=== PATIENT | male | born 1950 | race Caucasian/White ===

== ENCOUNTER 2018-05-28 13:20 | Outpatient (CLI) | payer MEDICARE ==
[~2018-05-28] VITALS: Ht 188 cm; Wt 136.1 kg
[~2018-05-28 13:20] MED LIST: ASPIRIN BUFFER325 M1 ORAL; ATENOLOL50 MG ORAL; DIOVAN HCT 1601 EACH ORAL; FELODIPINE ER10 MG PO; OXYCONTIN20 MG ORAL; PERIDEX15 ML MM; Plendil PO; VICODIN 5-3001 EACH ORAL; XARELTO10 MG ORAL; plendil
[2018-05-28] MEDS ORDERED: FUROSEMIDE80 M1 ORAL (16:25)
[2018-05-28 16:27] VITALS: BP 124/85
--- NOTE | 2018-05-28 20:45 | Consultation ---
DATE OF CONSULTATION: 05/28/2018 CHIEF COMPLAINT: Screening colonoscopy and history of colonic polyps. PAST MEDICAL HISTORY: 1. Atrial fibrillation. 2. Hypertension. 3. Arthritis. PAST SURGICAL HISTORY: Total hip replacement in 2013. MEDICATIONS: Atenolol, Diovan, Xarelto, Lasix, . FAMILY HISTORY: Father with colon cancer at age 82. SOCIAL HISTORY: The patient socially drinks, quit tobacco in 1989. Denies any IV drug abuse. ALLERGIES: No known allergies. REVIEW OF SYSTEMS: A 10-point review of systems was performed and pertinent positives in the history of present illness. PHYSICAL EXAMINATION: VITAL SIGNS: Temperature 97.2, blood pressure 124/85, pulse 80, respirations 20. HEENT: Normocephalic and atraumatic. No scleral icterus. NECK: Supple. No evidence of obvious lymphadenopathy. CARDIOVASCULAR: Regular rhythm. Plus S1 and S2. No obvious murmur. LUNGS: Clear to auscultation bilaterally. ABDOMEN: Positive bowel sounds. Soft, nontender. No rebound. No guarding. No peritoneal sign. EXTREMITIES: No cyanosis. No clubbing. No edema. ASSESSMENT: The patient is a 67-year-old male with past medical history of colonic polyps, family history of colon cancer, last colonoscopy over three years ago and the patient had three polyps. The patient will need a repeat colonoscopy. The patient was told that he needs to hold off on Xarelto for 48 hours before the procedure. He understood the risks and benefits of the procedure and stopping Xarelto was explained to the patient, he understood. The patient was given the prep instruction. The patient to call back for appointment for the colonoscopy. I want to thank, Dr. Beny Rangel, for this kind referral. Raymon Hogue M.D. DR: Cameron JOB#: [id number] CC: Beny Rangel M.D.; Fax#: [phone]
== END 2018-05-28 16:00 | disposition home or self-care (01) ==
LOC: PAN 13:20
DX: Z01.818 Encounter for other preprocedural examination (principal); I10 Essential (primary) hypertension; M19.90 Unspecified osteoarthritis, unspecified site; Z86.010 Personal history of colon polyps; Z79.01 Long term (current) use of anticoagulants; Z80.0 Family history of malignant neoplasm of digestive organs
CPT/HCPCS: 99202

== ENCOUNTER 2019-03-18 13:37 | Outpatient (CLI) | payer MEDICARE, BC ==
[~2019-03-18] VITALS: Ht 188 cm; Wt 142.0 kg
[~2019-03-18 13:37] MED LIST changes: +FUROSEMIDE80 M1 ORAL
--- NOTE | 2019-03-18 14:00 | General Progress Note ---
Assessment/Plan Assessment/Plan: 1. Atrial fibrillation. 2. Hypertension. 3. Arthritis 4. screening colon eval plan colonoscopy Subjective ROS Limited/Unobtainable: Yes Allergies: Coded Allergies: No Known Allergies (Unverified , 09/17/13) Objective General Appearance: alert EENT: normal ENT inspection Neck: supple Cardiovascular: normal rate Respiratory/Chest: lungs clear Abdomen: normal bowel sounds, non tender, soft Extremities: non-tender Raymon Hogue MD Mar 18, 2019 14:00
[2019-03-18 14:43] VITALS: BP 131/69
== END 2019-03-18 15:54 | disposition home or self-care (01) ==
LOC: PAN 13:37
DX: I10 Essential (primary) hypertension (principal); M19.90 Unspecified osteoarthritis, unspecified site; I48.91 Unspecified atrial fibrillation

== ENCOUNTER 2019-04-06 07:05 | Day surgery (SDC) | payer MEDICARE, BC ==
[2019-04-06] VITALS (8 sets, daily range): BP systolic 131–177; BP diastolic 90–100
[~2019-04-06] VITALS: Ht 188 cm; Wt 138.3 kg
[~2019-04-06 07:05] MED LIST changes: +LR 1000ml 1,000 ML IVLG ONE
[2019-04-06] MEDS ORDERED: ATORVASTATIN CA20 MG ORAL (07:53)
[2019-04-06] MEDS: LR 1000ml 1,000 ML IVLG SCH ×2 (08:05→09:42)
--- NOTE | 2019-04-06 08:13 | Anethesia Preoperative Eval ---
Anesthesia Pre-op PMH/ROS General Date of Evaluation: Apr 06, 2019 Time of Evaluation: 08:07 Anesthesiologist: rc ASA Score: ASA 4 Mallampati Score Class I : Soft palate, uvula, fauces, pillars visible Class II: Soft palate, uvula, fauces visible Class III: Soft palate, base of uvula visible Class IV: Only hard plate visible Mallampati Classification: Class II Surgeon: irma Diagnosis: hx/o colon polyps Surgical Procedure: colonoscopy Anesthesia History: none Social History: smoking - former smoker, alcohol use Family History: no anesthesia problems Allergies: Coded Allergies: No Known Allergies (Unverified , 09/17/13) Medications: see eMAR Patient NPO?: Yes Past Medical History Cardiovascular: Reports: HTN, arrhythmia - atrial fibrillation, other - hypercholesterolemia Gastrointestinal/Genitourinary: Reports: other - colon polyps, kidney calculi, HEENT: Reports: cataract (L), LUMBEE (L) Musculoskeletal/Integumentary: Reports: DJD - left peña PSxH Narrative: dental implant, cataract sx, colonoscopy, echocardiogram, endoscopy Anesthesia Pre-op Phys. Exam Physician Exam Last Vital Signs Date Time Temp Pulse Resp B/P (MAP) Pulse Ox O2 Delivery O2 Flow Rate FiO2 04/06/19 07:48 Room Air Constitutional: NAD Neurologic: CN 2-12 intact Cardiovascular: RRR Respiratory: CTA Gastrointestinal: S/NT/ND Airway Exam Mallampati Score: Class II MO: limited Neck: flexible TMD: 2fb ROM: limited Anesthesia Pre-op A/P Studies Pre-op Studies: EKG - atrial fibrillation with slow ventricular response, septal infarct Risk Assessment & Plan Assessment: asa4 Plan: mac Status Change Before Surgery: No Pre-Antibiotics Drug: Amairani Johnson MD Apr 06, 2019 08:13
[2019-04-06] MEDS ORDERED: fentaNYL 100 mcg/2 mL IV PRN (08:15)
[2019-04-06] MEDS ORDERED: DiphenhydrAMINE 50mg/ml Inj IVP PRN (08:15)
[2019-04-06] MEDS ORDERED: Atropine Inj 1mg/10ml Syr IV PRN (08:15)
[2019-04-06] MEDS ORDERED: Midazolam 2mg/2ml Inj IVP PRN (08:15)
--- NOTE | 2019-04-06 08:44 | Pre-Procedure Note/Attestation ---
Pre-Procedure Note/Attestation Complete Prior to Procedure Planned Procedure: not applicable Procedure Narrative: colonoscopy Indications for Procedure Pre-Operative Diagnosis: screening Attestation I attest that I discussed the nature of the procedure; its benefits; risks and complications; and alternatives (and the risks and benefits of such alternatives ), prior to the procedure, with the patient (or the patient's legal medical service representative). I attest that, if there was a reasonable possibility of needing a blood transfusion, the patient (or the patient's legal medical service representative) was given the [facility] standardized written summary, pursuant to the [employer] [place] Blood Safety Act ([place] Health and Safety Code # 1645, as amended). I attest that I re-evaluated the patient just prior to the surgery and that there has been no change in the patient's H&P, except as documented below: Raymon Hogue MD Apr 06, 2019 08:44
--- NOTE | 2019-04-06 08:45 | Short Stay Surgery H&P ---
History of Present Illness History of Present Illness Chief Complaint see recent office note HPI Martinez Tavera is a 68 year old male who was admitted on for Hx Of Polyps Patient History Allergies: Coded Allergies: No Known Allergies (Unverified , 09/17/13) Medication History Scheduled Atenolol* (Tenormin*), 50 MG ORAL BID, (Reported) Atorvastatin Calcium* (Atorvastatin Calcium*), 20 MG ORAL BEDTIME, (Reported) Furosemide* (Lasix*), 80 MG ORAL DAILY, (Reported) Rivaroxaban (Xarelto*), 10 MG ORAL DAILY, (Reported) Valsartan/Hydrochlorothiazide 160-12.5MG (Diovan Hct 160-12.5 Mg Tab), 2 TAB ORAL DAILY, (Reported) Discontinued Medications Felodipine (Felodipine Er), 10 MG PO HS, (Reported) Discontinued Reason: Pt stopped taking med Physical Exam Vital Signs Last Vital Signs Date Time Temp Pulse Resp B/P (MAP) Pulse Ox O2 Delivery O2 Flow Rate FiO2 04/06/19 08:05 97.0 55 18 177/98 98 Room Air Plan Attestation Are the patient's medical conditions optimized for surgery? Raymon Hogue MD Apr 06, 2019 08:45
[2019-04-06] MEDS ORDERED: Propofol 200mg/20ml IV ONE (09:00)
[2019-04-06] MEDS ORDERED: LR 1000ml ONE (09:00)
[2019-04-06] MEDS ORDERED: Lidocaine 1% MPF 10mg/ml 5ml ONE (09:00)
--- NOTE | 2019-04-06 09:18 | Endoscopy Procedure Note ---
Endoscopy Procedure Note General Indication for Procedure: screening Procedures Performed: colonoscopy Operative Findings/Diagnosis: 5 polyps Specimen: yes Pt Tolerated Procedure Well: Yes Estimated Blood Loss: none Anesthesia Anesthesiologist: jeramie Anesthesia: MAC Medications Medication Given: see anesthesia record Inserted Devices Implant(s) used?: No Quality Quality of Bowel Preparation: Fair Did scope reach the cecum?: Yes Was there any complications?: No GI Core Measures 50 yrs or older w/o bx or poly: No 10yrs. F/U recommended: Yes If not recommended, why?: Above average risk 18 years or older w/prev. colo: Yes <3yrs. since last colonoscopy: No Raymon Hogue MD Apr 06, 2019 09:18
--- NOTE | 2019-04-06 09:40 | Immediate Post-Op Evaluation ---
Immediate Post-Op Evalulation Immediate Post-Op Evalulation Procedure: colonoscopy w/ bx Date of Evaluation: Apr 06, 2019 Time of Evaluation: 09:35 IV Fluids: 300ml lr Blood Products: none Estimated Blood Loss: negligible Blood Pressure Systolic: 141 Blood Pressure Diastolic: 94 Pulse Rate: 71 Respiratory Rate: 18 O2 Sat by Pulse Oximetry: 98 Temperature (Fahrenheit): 97.5 Pain Score (1-10): 0 Nausea: No Vomiting: No Complications none Patient Status: awake, reacts, patent Hydration Status: adequate Drug: Amairani Johnson MD Apr 06, 2019 09:40
--- NOTE | 2019-04-06 09:41 | 48 Hour Post Anesthesia Eval ---
Post Anesthesia Evaluation Procedure: colonoscopy w/ bx Date of Evaluation: Apr 06, 2019 Time of Evaluation: 09:40 Blood Pressure Systolic: 146 0: 95 Pulse Rate: 71 Respiratory Rate: 18 Temperature (Fahrenheit): 97.5 O2 Sat by Pulse Oximetry: 99 Airway: patent Nausea: No Vomiting: No Pain Intensity: 0 Hydration Status: adequate Cardiopulmonary Status: stable Mental Status/LOC: patient returned to baseline Post-Anesthesia Complications: none Follow-up care needed: N/A Amairani Cage MD Apr 06, 2019 09:41
--- NOTE | 2019-04-06 12:30 | Procedure Note ---
DATE OF PROCEDURE: 04/06/2019 SURGEON: Raymon Hogue M.D. PROCEDURE: Colonoscopy with biopsy and snare polypectomy. ANESTHESIA: Per Dr. Brar. INSTRUMENT: Olympus adult flexible colonoscope. INDICATIONS: Screening colonoscopy evaluation and history of colonic polyps. REASON FOR PROCEDURE: The procedure, risks, benefits, and possible consequences, including hemorrhage, aspiration, perforation and infection, and alternative treatments, were explained to the patient/legal guardian by Dr. Raymon Hogue and the patient/legal guardian understood and accepted these risks. DESCRIPTION OF PROCEDURE: After informed consent was obtained and the patient was adequately sedated, first rectal exam was performed, which was positive for internal and external hemorrhoids. Then, the scope was advanced from the rectum into the cecum, documented by appendix orifice, ileocecal valve, and palpation. Quality of prep was fair. The patient had total of five colonic polyps, four of them removed with cold biopsy, one with a snare. These polyps all were small less than 1 cm. There was one in the cecum, two in transverse, and two in sigmoid. Retroflexion of rectum showed evidence of internal hemorrhoids. SUMMARY OF FINDINGS: 1. Fair colonoscopy prep. 2. Five colonic polyps removed, see above for details. 3. Internal hemorrhoids. RECOMMENDATIONS: 1. Follow up pathology. 2. Repeat colonoscopy in three years. I want to thank Dr. Beny Rangel, for this kind referral. Raymon Hogue M.D. DR: GURDEEP JOB#: [id number] CC: Beny Rangel M.D.; Fax#: [phone]
== END 2019-04-06 10:45 | disposition home or self-care (01) ==
LOC: GAS 07:05
DX: Z12.11 Encounter for screening for malignant neoplasm of colon (principal); Z86.010 Personal history of colon polyps; K63.5 Polyp of colon; K64.8 Other hemorrhoids; Z87.891 Personal history of nicotine dependence; I10 Essential (primary) hypertension; E78.00 Pure hypercholesterolemia, unspecified; Z96.642 Presence of left artificial hip joint; I48.91 Unspecified atrial fibrillation; D12.2 Benign neoplasm of ascending colon; D12.5 Benign neoplasm of sigmoid colon; D12.3 Benign neoplasm of transverse colon
CPT/HCPCS: 45380; 45385; 93005; J2704; J7120; 94003; 94150

== ENCOUNTER 2019-04-20 14:04 | Outpatient (CLI) | payer MEDICARE, BC ==
[~2019-04-20 14:04] MED LIST changes: +ATORVASTATIN CA20 MG ORAL; -LR 1000ml 1,000 ML IVLG ONE
--- NOTE | 2019-04-20 14:23 | General Progress Note ---
Assessment/Plan Assessment/Plan: SUMMARY OF FINDINGS: 1. Fair colonoscopy prep. 2. Five colonic polyps removed, see above for details. 3. Internal hemorrhoids. RECOMMENDATIONS: 1. pathology reviewed 2. Repeat colonoscopy in three years. Subjective ROS Limited/Unobtainable: Yes Allergies: Coded Allergies: No Known Allergies (Unverified , 09/17/13) Objective General Appearance: alert EENT: normal ENT inspection Neck: supple Cardiovascular: normal rate Respiratory/Chest: lungs clear Abdomen: normal bowel sounds, non tender, soft Extremities: non-tender Raymon Hogue MD Apr 20, 2019 14:23
== END 2019-04-20 16:04 | disposition home or self-care (01) ==
LOC: PAN 14:04
DX: K63.5 Polyp of colon (principal); K64.8 Other hemorrhoids
CPT/HCPCS: 99212